=== PATIENT | female | born 1950 | race Caucasian/White ===

== ENCOUNTER → 2018-04-28 13:29 | Outpatient (CLI) | payer MEDICARE, OTHER | END | disposition home or self-care (01) | LOC: D.RAD 13:29 | DX: J45.909 Unspecified asthma, uncomplicated (principal) ==

== ENCOUNTER → 2019-06-14 18:07 | Outpatient (CLI) | payer MEDICARE, OTHER | END | disposition home or self-care (01) | LOC: D.LABREF 18:07 | PROVIDERS: ATTEND Urology | DX: D72.829 Elevated white blood cell count, unspecified (principal) ==